=== PATIENT | female | born 1945 | race Caucasian/White ===

== ENCOUNTER 2019-04-04 16:26 | Inpatient (IN) | payer BC ==
[~2019-04-04] VITALS: Ht 182.9 cm; Wt 93.0 kg
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
--- NOTE | 2019-04-04 16:36 | NUR ---
FRANK RG AT BEDSIDE FOR MSE.
[2019-04-04] MEDS ORDERED: IV NORMAL SALINE 500 ML BAG IV ONE (16:45)
[2019-04-04 17:01] LABS: BASOPHILS # (AUTO) 0.1 K/uL (0.0-8.0); BASOPHILS % (AUTO) 0.8 % (0.0-2.0); EOSINOPHILS # (AUTO) 0.1 K/uL (0.0-0.7); EOSINOPHILS % (AUTO) 1.9 % (0.0-7.0); HEMOGLOBIN 13.5 g/dL (10.9-14.3); LYMPHOCYTES # (AUTO) 2.6 K/uL (20.0-40.0); LYMPHOCYTES % (AUTO) 38.1 % (20.5-51.5); MEAN CORPUSCULAR HEMOGLOBIN 29.3 uug (24.7-32.8); MEAN CORPUSCULAR HGB CONC 33 g/dL (32.3-35.6); MEAN CORPUSCULAR VOLUME 89.1 fL (75.5-95.3); MONOCYTES # (AUTO) 0.6 K/uL (2.0-10.0); MONOCYTES % (AUTO) 8.3 % (0.0-11.0); NEUTROPHILS # (AUTO) 3.5 K/uL (1.8-8.9); NEUTROPHILS % (AUTO) 50.9 % (38.5-71.5); PLATELET COUNT (AUTO) 216 K/uL (179-408); WHITE BLOOD COUNT (AUTO) 6.9 K/uL (3.8-11.8)
[2019-04-04 17:20] LABS: CREATININE 0.8 mg/dL (0.6-1.3); POTASSIUM 3.7 mmol/L (3.5-5.1)
[2019-04-04] MEDS ORDERED: SWABABLE VALVE TRANSFER SET EA MC ONE (17:26)
[2019-04-04] MEDS ORDERED: IOHEXOL 300MG/ML 100 ML INFUS..BTL ONE (17:26)
[2019-04-04] MEDS ORDERED: IV NORMAL SALINE 250 ML IV ONE (17:26)
--- NOTE | 2019-04-04 19:07 | NUR ---
SHIFT REPORT GIVEN TO RALPH Pedroza RN. PT RESTING COMFORTABLY IN BED. NAD.
--- NOTE | 2019-04-04 19:30 | NUR ---
Pt. admitted to Telemetry, under care of Dr. Ean Julio. Diagnosis: Pulmonary Contusion/Sternal Fracture Belongs List completed
--- NOTE | 2019-04-04 20:25 | NUR ---
Patient unable to recall home medications at this time. Patient's daughter Anjelica Payne will bring bottles of medication sometime today.
[2019-04-04 20:55] VITALS: BP 171/94
[2019-04-04] MEDS ORDERED: BENA20TA9 PO (21:22)
[2019-04-04] MEDS ORDERED: BUSP5TAB3 PO (21:22)
[2019-04-04] MEDS ORDERED: CALC-860 PO (21:22)
[2019-04-04] MEDS ORDERED: BIOT1TAB PO (21:22)
[2019-04-04] MEDS ORDERED: PROM25TA15 PO (21:22)
[2019-04-04] MEDS ORDERED: METO50TA16 PO (21:22)
[2019-04-04] MEDS ORDERED: OMEG-15 PO (21:22)
[2019-04-04] MEDS ORDERED: MECL-102 PO (21:22)
[2019-04-04] MEDS ORDERED: MAGN400C PO (21:22)
[2019-04-04] MEDS ORDERED: GUAIFENESIN/DEXTROMETHORPHAN 5 ML UDC PO PRN (21:45)
[2019-04-04] MEDS ORDERED: MAGNESIUM HYDROXIDE 30 ML LIQUID UDC PO PRN (23:00)
[2019-04-04] MEDS ORDERED: ONDANSETRON 4 MG/2 ML VIAL IV PRN (23:00)
[2019-04-04] MEDS ORDERED: ZOLPIDEM 5 MG TABLET PO PRN (23:00)
[2019-04-04] MEDS ORDERED: PROMETHAZINE HCL 25 MG TABLET PO PRN (23:00)
[2019-04-04] MEDS ORDERED: MECLIZINE HCL 25 MG TABLET PO PRN (23:00)
[2019-04-04] MEDS ORDERED: MORPHINE SULFATE 2 MG/1 ML DISP.SYRIN IV PRN (23:00)
[2019-04-04] MEDS ORDERED: busPIRone 5 MG TABLET PO PRN (23:00)
[2019-04-04] MEDS ORDERED: ACETAMINOPHEN 325 MG TABLET PO PRN (23:00)
[2019-04-04 23:15] LABS: BILIRUBIN,DIRECT 0.1 mg/dL (0.0-0.2); BILIRUBIN,TOTAL 0.3 mg/dL (0.2-1.0)
[2019-04-04] MEDS: METOPROLOL TARTRATE 50 MG TABLET PO SCH (23:39)
[2019-04-04] MEDS ORDERED: METOPROLOL TARTRATE 50 MG TABLET PO ONE (23:44)
[2019-04-04] MEDS: HYDROCODONE/APAP 5-325MG TABLET PO PRN (23:49)
[2019-04-05 00:59] VITALS: BP 134/82
[2019-04-05 04:00] VITALS: BP 142/85
[2019-04-05 06:03] LABS: BILIRUBIN,TOTAL 0.5 mg/dL (0.2-1.0); CREATININE 0.8 mg/dL (0.6-1.3); MAGNESIUM 1.8 mg/dL (1.8-2.4); PHOSPHOROUS 4.3 mg/dL (2.5-4.9); POTASSIUM 3.6 mmol/L (3.5-5.1); TOTAL PROTEIN, SERUM 6.1 g/dL (6.4-8.2)
[2019-04-05] MEDS: HYDROCODONE/APAP 5-325MG TABLET PO PRN ×2 (06:05→10:43)
[2019-04-05 06:06] LABS: BASOPHILS # (AUTO) 0.1 K/uL (0.0-8.0); EOSINOPHILS # (AUTO) 0.2 K/uL (0.0-0.7); EOSINOPHILS % (AUTO) 3.1 % (0.0-7.0); HEMATOCRIT 37.8 % (31.2-41.9); HEMOGLOBIN 12.5 g/dL (10.9-14.3); LYMPHOCYTES # (AUTO) 2.2 K/uL (20.0-40.0); LYMPHOCYTES % (AUTO) 41.9 % (20.5-51.5); MEAN CORPUSCULAR HEMOGLOBIN 29.4 uug (24.7-32.8); MEAN CORPUSCULAR HGB CONC 33 g/dL (32.3-35.6); MONOCYTES # (AUTO) 0.5 K/uL (2.0-10.0); MONOCYTES % (AUTO) 9.1 % (0.0-11.0); NEUTROPHILS # (AUTO) 2.4 K/uL (1.8-8.9); NEUTROPHILS % (AUTO) 44.9 % (38.5-71.5); PLATELET COUNT (AUTO) 195 K/uL (179-408); RED BLOOD CELL COUNT(AUTO) 4.25 MIL/uL (3.63-4.92); WHITE BLOOD COUNT (AUTO) 5.3 K/uL (3.8-11.8)
[2019-04-05 06:09] LABS: THYROID STIMULATING HORMONE 2.067 mIU/mL (0.358-3.740)
--- NOTE | 2019-04-05 06:56 | NUR ---
Admitted to room 305; assisted with needs; c/o pain meds administered; continue to monitor; plan of care initiated.
[2019-04-05] MEDS ORDERED: PANTOPRAZOLE SODIUM 40 MG TABLET.DR PO SCH (07:00)
--- NOTE | 2019-04-05 07:20 | NUR ---
RECEIVED PATIENT IN BED ASLEEP SEEMS COMFORTABLE AT THIS TIME ALL HER PERSONAL BELONGINGS AND CALL LIGHTS ARE WITHIN EASY REACH MADE COMFORTABLE AND WILL CONTINUE TO OBSERVE.
[2019-04-05] MEDS ORDERED: BENAZEPRIL HCL 20 MG TABLET PO SCH (09:00)
[2019-04-05] MEDS ORDERED: CALCIUM CARB/VITAMIN D 600-400 MG TABLET PO SCH (09:00)
[2019-04-05] MEDS ORDERED: MORPHINE SULFATE 4 MG/1 ML DISP.SYRIN IV PRN (10:00)
--- NOTE | 2019-04-05 10:00 | NUR ---
PATIENT SEEN AND EXAMINED BY DR SARABIA WITH NO NEW ORDERS AT THIS TIME AMBULATORY TO AND FROM THE BATHROOM STATED COMFORTABLE AT THIS TIME.
[2019-04-05] MEDS ORDERED: IBUP-1955 PO (10:18)
[2019-04-05] MEDS: METOPROLOL TARTRATE 50 MG TABLET PO SCH (10:42)
--- NOTE | 2019-04-05 10:43 | NUR ---
C/O PAIN ON HER STERNUM STATED THAT NORCO HELPED HER EARLIER SO I GAVE HER SOME NORCO ORDERED
[2019-04-05 11:22] VITALS: BP 139/77
--- NOTE | 2019-04-05 11:45 | NUR ---
ORDER TO DISCHARGE PATIENT HOME NOTED PATIENTS DAUGHTER SHLOMO AWARE AND STATED WILL BE HERE TO LAST PUTTER AWAY PATIENT ABOUT 1330.
--- NOTE | 2019-04-05 13:50 | NUR ---
PATIENT DISCHARGED PICKED UP BY HER DAUGHTER SHLOMO IN SATISFACTORY CONDITION WITH DISCHARGE INSTRUCTIONS AND ALL OF HER PERSONAL BELONGINGS.PATIENT INSTRUCTED TO FOLLOW UP WITH WITH HER PRIMARY DOCTOR AND SHE EXPRESSED UNDERSTANDING.
[2019-04-05] MEDS ORDERED: DOCUSATE SODIUM 100 MG CAPSULE PO SCH (21:00)
== END 2019-04-05 13:50 | disposition home or self-care (01) | DRG 564 ==
LOC: ER 16:35 → TELE3 20:03 → MEDSURG3 04-05 12:50
PROVIDERS: ADMIT Internal Medicine; ATTEND Internal Medicine
DX: S22.22XA Fracture of body of sternum, initial encounter for closed fracture (principal); E43 Unspecified severe protein-calorie malnutrition; V43.62XA Car passenger injured in collision with other type car in traffic accident, initial encounter; Y92.410 Unspecified street and highway as the place of occurrence of the external cause; S16.1XXA Strain of muscle, fascia and tendon at neck level, initial encounter; Z68.27 Body mass index [BMI] 27.0-27.9, adult; S20.219A Contusion of unspecified front wall of thorax, initial encounter; I11.9 Hypertensive heart disease without heart failure; M50.322 Other cervical disc degeneration at C5-C6 level; K44.9 Diaphragmatic hernia without obstruction or gangrene
CPT/HCPCS: 36415; 70030-TC; 71260; 72125; 83735; 84100; 84443; 85025; 93005; A4663; G0378; J7030; J7050; Q0169; Q9967